=== PATIENT | male | born 2000 | race Caucasian/White ===

== ENCOUNTER 2019-01-31 21:56 | Emergency (ER) | payer BC ==
[~2019-01-31] VITALS: Ht 170.2 cm; Wt 83.9 kg
[2019-01-31 22:06] VITALS: BP 122/77
--- NOTE | 2019-01-31 22:09 | NUR ---
TO LOBBY A/W BED, ANIVAL MACK NOTED
--- NOTE | 2019-01-31 22:48 | NUR ---
PT AMBULATED TO ER BED 08
--- NOTE | 2019-01-31 22:59 | NUR ---
PT TO ED WITH C/O RT TESTICULAR PAIN AND SWELLING S/P SHAVING PUBIC AREA. PT DENIES INJURY OR TRAUMA. SMALL, RED, BUMP NOTED TO RT TESTICLE. DENIES DISCHARGE OR DRAINAGE. PT PLACED INTO BED, PENDING MD NGUYEN.
[2019-01-31 23:33] VITALS: BP 122/77
--- NOTE | 2019-01-31 23:34 | NUR ---
Patient discharged with v/s stable BY ER MD KAY. Written and verbal after care instructions given and explained. Patient alert, oriented and verbalized understanding of instructions. Ambulatory with steady gait. All questions addressed prior to discharge. ID band removed. Patient advised to follow up with PMD. Rx of DOXYCYLINE given. Patient educated on indication of medication including possible reaction and side effects. Opportunity to ask questions provided and answered.
== END 2019-01-31 23:34 | disposition home or self-care (01) ==
LOC: MED 21:56
DX: N50.89 Other specified disorders of the male genital organs (principal)
CPT/HCPCS: 99283